=== PATIENT | female | born 1995 | race Caucasian/White ===

== ENCOUNTER 2017-08-17 22:08 | Emergency (ER) | payer MEDICAID ==
[2017-08-18 00:33] LABS: ADD MAN DIFF? NO
[2017-08-18 00:52] LABS: ADD UMIC YES; UR ASCORBIC ACID NEGATIVE (NEGATIVE); UR BACTERIA FEW /HPF (NONE SEEN); UR BILIRUBIN (Dip) NEGATIVE (NEGATIVE); UR BLOOD (Dip) NEGATIVE (NEGATIVE); UR CLARITY SLIGHTLY CLOUDY (CLEAR); UR COLOR YELLOW (YELLOW); UR GLUCOSE (Dip) NEGATIVE (NEGATIVE); UR KETONES (Dip) NEGATIVE (NEGATIVE); UR LEUKOCYTE ESTERASE (Dip) TRACE Leu/ul (NEGATIVE); UR NITRITE (Dip) NEGATIVE (NEGATIVE); UR RBC 2 /HPF (0-5); UR SPECIFIC GRAVITY (Dip) 1.013 (1.003-1.030); UR SQUAMOUS EPITHELIAL CELL FEW /HPF (FEW); UR TOTAL PROTEIN (Dip) NEGATIVE (NEGATIVE); UR UROBILINOGEN (Dip) NEGATIVE (NEGATIVE); UR WBC 4 /HPF (0-5)
[2017-08-18 00:54] LABS: WHITE BLOOD COUNT 11.3 10^3/ul (4.8-10.8)
[2017-08-18 00:54] LABS: BASOPHILS % 0.4 % (0.0-2.0); EOSINOPHILS # 0.2 10^3/ul (0.0-0.5); EOSINOPHILS % 1.6 % (0.0-7.0); HEMATOCRIT 37.3 % (37.0-47.0); HEMOGLOBIN 12.3 g/dl (12.0-16.0); LYMPHOCYTES # 3.4 10^3/ul (0.8-2.9); LYMPHOCYTES % 29.9 % (15.0-51.0); MEAN CORPUSCULAR HEMOGLOBIN 28.9 pg (29.0-33.0); MEAN CORPUSCULAR VOLUME 87.8 fl (82.0-101.0); MEAN PLATELET VOLUME 11.8 fl (7.4-10.4); MONOCYTE # 0.6 10^3/ul (0.3-0.9); MONOCYTES % 4.9 % (0.0-11.0); NEUTROPHIL # 7.1 10^3/ul (1.6-7.5); NEUTROPHILS % 62.8 % (39.0-77.0); PLATELET COUNT 185 10^3/UL (140-415); RED BLOOD COUNT 4.25 10^6/ul (4.20-5.40); RED CELL DISTRIBUTION WIDTH 13.2 % (11.5-14.5)
== END 2017-08-18 02:43 | disposition home or self-care (01) ==
LOC: FTE 22:08
DX: O26.892 Other specified pregnancy related conditions, second trimester (principal); R10.2 Pelvic and perineal pain; O23.42 Unspecified infection of urinary tract in pregnancy, second trimester; Z3A.17 17 weeks gestation of pregnancy
CPT/HCPCS: 36415; 76805; 81001; 84702; 85025; 86900; 86901; 99284-25

== ENCOUNTER 2017-09-27 13:09 | Outpatient (CLI) | payer MEDICAID ==
[2017-09-27 14:47] LABS: ADD UMIC YES; UR ASCORBIC ACID NEGATIVE (NEGATIVE); UR BACTERIA MODERATE /HPF (NONE SEEN); UR BILIRUBIN (Dip) NEGATIVE (NEGATIVE); UR BLOOD (Dip) 2+ mg/dL (NEGATIVE); UR CLARITY SLIGHTLY CLOUDY (CLEAR); UR COLOR YELLOW (YELLOW); UR GLUCOSE (Dip) NEGATIVE (NEGATIVE); UR KETONES (Dip) NEGATIVE (NEGATIVE); UR LEUKOCYTE ESTERASE (Dip) 2+ Leu/ul (NEGATIVE); UR MUCUS FEW /HPF (NONE SEEN); UR NITRITE (Dip) NEGATIVE (NEGATIVE); UR RBC 0 /HPF (0-5); UR SPECIFIC GRAVITY (Dip) 1.015 (1.003-1.030); UR SQUAMOUS EPITHELIAL CELL FEW /HPF (FEW); UR TOTAL PROTEIN (Dip) NEGATIVE (NEGATIVE); UR UROBILINOGEN (Dip) NEGATIVE (NEGATIVE); UR WBC 4 /HPF (0-5)
[2017-09-27 14:53] LABS: RUPTURE FETAL MEMBRANES NEGATIVE (NEGATIVE)
== END 2017-09-27 17:50 | disposition home or self-care (01) ==
LOC: OBT 13:09 → L-D 13:14 → OBT 17:50
DX: O99.612 Diseases of the digestive system complicating pregnancy, second trimester (principal); K80.20 Calculus of gallbladder without cholecystitis without obstruction; O23.42 Unspecified infection of urinary tract in pregnancy, second trimester; Z3A.22 22 weeks gestation of pregnancy
CPT/HCPCS: 76705; 76815; 76817; 81001; 84112

== ENCOUNTER 2017-12-09 14:30 | Outpatient (CLI) | payer MEDICAID ==
[2017-12-09 16:49] LABS: ADD UMIC YES; UR ASCORBIC ACID NEGATIVE (NEGATIVE); UR BACTERIA FEW /HPF (NONE SEEN); UR BILIRUBIN (Dip) NEGATIVE (NEGATIVE); UR BLOOD (Dip) NEGATIVE (NEGATIVE); UR CLARITY SLIGHTLY CLOUDY (CLEAR); UR COLOR YELLOW (YELLOW); UR GLUCOSE (Dip) NEGATIVE (NEGATIVE); UR KETONES (Dip) NEGATIVE (NEGATIVE); UR LEUKOCYTE ESTERASE (Dip) 1+ Leu/ul (NEGATIVE); UR NITRITE (Dip) NEGATIVE (NEGATIVE); UR RBC 1 /HPF (0-5); UR SPECIFIC GRAVITY (Dip) 1.024 (1.003-1.030); UR SQUAMOUS EPITHELIAL CELL MODERATE /HPF (FEW); UR TOTAL PROTEIN (Dip) NEGATIVE (NEGATIVE); UR UROBILINOGEN (Dip) NEGATIVE (NEGATIVE); UR WBC 3 /HPF (0-5)
[2017-12-09 17:04] LABS: RUPTURE FETAL MEMBRANES NEGATIVE (NEGATIVE)
[2017-12-09] MEDS: LACTATED RINGER'S 1,000 ML IV (18:08)
[2017-12-09] MEDS ORDERED: TERBUTALINE 1 ML (18:35)
[2017-12-09] MEDS: TERBUTALINE 1 MG/ML INJ SC (18:37)
== END 2017-12-09 21:39 | disposition home or self-care (01) ==
LOC: OBT 14:30 → L-D 14:30 → OBT 21:39
DX: O62.9 Abnormality of forces of labor, unspecified (principal); Z3A.33 33 weeks gestation of pregnancy
CPT/HCPCS: 76817; 76818; 81001; 84112; 96360; 96361; 96372

== ENCOUNTER 2018-01-07 14:48 | Outpatient (CLI) | payer MEDICAID ==
[2018-01-07 15:52] LABS: LIPASE 75 U/L (23-300)
[2018-01-07 15:52] LABS: AMYLASE 92 U/L (11-123)
== END 2018-01-07 16:30 | disposition home or self-care (01) ==
LOC: OBT 14:48 → L-D 14:49 → OBT 16:30
DX: O36.8130 Decreased fetal movements, third trimester, not applicable or unspecified (principal); Z3A.37 37 weeks gestation of pregnancy
CPT/HCPCS: 76705; 76818; 82150; 83690

== ENCOUNTER 2018-01-21 16:55 | Inpatient (IN) | payer MEDICAID ==
[2018-01-21] MEDS ORDERED: CARBOPROST 250 MCG INJ IM (18:00)
[2018-01-21] MEDS ORDERED: OXYTOCIN 30 UNITS/LR 500 ML IV ×2 (18:00→23:41)
[2018-01-21] MEDS ORDERED: BUTORPHANOL 2 MG INJ IV (18:00)
[2018-01-21] MEDS ORDERED: IBUPROFEN 600 MG TAB PO (18:00)
[2018-01-21] MEDS ORDERED: METHYLERGONOVINE 0.2 MG INJ IM (18:00)
[2018-01-21] MEDS ORDERED: LIDOCAINE 1% (MPF) 30 ML INJ INJ (18:00)
[2018-01-21] MEDS ORDERED: MISOPROSTOL 200 MCG TAB PR (18:00)
[2018-01-21] MEDS: LACTATED RINGER'S 1,000 ML IV ×2 (18:12→22:28)
[2018-01-21 18:20] LABS: ADD MAN DIFF? NO
[2018-01-21 18:26] LABS: WHITE BLOOD COUNT 8.6 10^3/ul (4.8-10.8)
[2018-01-21 18:27] LABS: BASOPHILS % 0.2 % (0.0-2.0); EOSINOPHILS # 0.1 10^3/ul (0.0-0.5); EOSINOPHILS % 1.1 % (0.0-7.0); HEMATOCRIT 36.8 % (37.0-47.0); HEMOGLOBIN 12.1 g/dl (12.0-16.0); LYMPHOCYTES # 1.9 10^3/ul (0.8-2.9); LYMPHOCYTES % 21.6 % (15.0-51.0); MEAN CORPUSCULAR HEMOGLOBIN 28.8 pg (29.0-33.0); MEAN CORPUSCULAR HGB CONC 32.9 g/dl (32.0-37.0); MEAN CORPUSCULAR VOLUME 87.6 fl (82.0-101.0); MEAN PLATELET VOLUME 12.7 fl (7.4-10.4); MONOCYTE # 0.6 10^3/ul (0.3-0.9); MONOCYTES % 6.8 % (0.0-11.0); NEUTROPHILS % 69.8 % (39.0-77.0); PLATELET COUNT 151 10^3/UL (140-415); RED CELL DISTRIBUTION WIDTH 13.8 % (11.5-14.5)
[2018-01-21 18:51] LABS: INR 0.97; PARTIAL THROMBOPLASTIN TIME 27.8 Sec (25.0-35.0)
[2018-01-21] MEDS: FAMOTIDINE 20 MG INJ IV (22:33)
[2018-01-21] MEDS: METOCLOPRAMIDE 10 MG INJ IV (22:36)
[2018-01-21] MEDS: CITRIC ACID/SODIUM CITRATE 15 ML CUP PO (22:38)
[2018-01-21] MEDS ORDERED: morphine SULFATE/PF (10 MG/10 ML) INJ (23:41)
[2018-01-21] MEDS ORDERED: BUPIVACAINE 0.75%/DEXT (SPINAL) 2 ML INJ (23:41)
[2018-01-21] MEDS ORDERED: PHENYLephrine (100 MCG/ML) 5ML SYG (23:57)
[2018-01-22] MEDS ORDERED: ONDANSETRON 4 MG INJ (00:13)
[2018-01-22] MEDS ORDERED: OXYTOCIN 30 UNITS/LR 500 ML IV ×2 (00:28→01:30)
[2018-01-22] MEDS ORDERED: FENTAnyl 50 MCG/ML VIAL (00:37)
[2018-01-22] MEDS: DEXTROSE 5%-LR 1,000 ML IV ×3 (01:05→20:48)
[2018-01-22] MEDS: CEFAZOLIN 2 GM/50 ML (PMX) 50 ML IV (01:26)
[2018-01-22] MEDS: OXYTOCIN 30 UNITS/LR 500 ML IV ×3 (01:26→01:40)
[2018-01-22] MEDS ORDERED: MEPERIDINE 25 MG INJ IV (01:30)
[2018-01-22] MEDS ORDERED: CARBOPROST 250 MCG INJ IM (01:30)
[2018-01-22] MEDS ORDERED: ONDANSETRON 4 MG INJ IV ×2 (01:30)
[2018-01-22] MEDS ORDERED: DIPHENHYDRAMINE 50 MG INJ IV (01:30)
[2018-01-22] MEDS ORDERED: ZOLPIDEM 5 MG TAB PO (01:30)
[2018-01-22] MEDS ORDERED: METHYLERGONOVINE 0.2 MG INJ IM (01:30)
[2018-01-22] MEDS ORDERED: NALOXONE (0.4 MG/ML) INJ IV (01:30)
[2018-01-22] MEDS: OXYCODONE/ACETAMINOPHEN (5/325) TAB PO ×3 (01:30→17:30)
[2018-01-22] MEDS ORDERED: HYDROmorphONE 1 MG/5 ML IV SYRINGE IV ×3 (01:30)
[2018-01-22] MEDS ORDERED: FENTAnyl 50 MCG/ML VIAL IV ×3 (01:30)
[2018-01-22] MEDS ORDERED: MISOPROSTOL 200 MCG TAB PR (01:30)
[2018-01-22] MEDS ORDERED: METHYLERGONOVINE 0.2 MG TAB PO (01:30)
[2018-01-22] MEDS ORDERED: PROCHLORPERAZINE 10 MG INJ IV (01:30)
[2018-01-22] MEDS ORDERED: HYDROmorphONE 0.5 MG/0.5 ML SYG IV ×2 (01:30)
[2018-01-22] MEDS: LACTATED RINGER'S 1,000 ML IV (01:39)
[2018-01-22] MEDS: KETOROLAC 30 MG INJ IV ×3 (01:53→16:17)
[2018-01-22] MEDS: LANOLIN 7 GM TUBE TOP (10:04)
[2018-01-22] MEDS: SENNA/DOCUSATE NA (8.6MG/50MG) TAB PO ×2 (10:04→20:47)
[2018-01-22 15:22] LABS: RAPID PLASMA REAGIN NONREACTIVE (NR)
[2018-01-22] MEDS: DIPHENHYDRAMINE 50 MG INJ IV (20:47)
[2018-01-23] MEDS: DEXTROSE 5%-LR 1,000 ML IV (01:05)
[2018-01-23] MEDS: OXYCODONE/ACETAMINOPHEN (5/325) TAB PO ×3 (01:35→17:52)
[2018-01-23] MEDS: IBUPROFEN 800 MG TAB PO ×3 (05:54→22:01)
[2018-01-23] MEDS: SENNA/DOCUSATE NA (8.6MG/50MG) TAB PO ×2 (08:59→20:58)
[2018-01-23 11:11] LABS: ADD MAN DIFF? NO
[2018-01-23 11:13] LABS: BASOPHILS % 0.4 % (0.0-2.0); EOSINOPHILS # 0.2 10^3/ul (0.0-0.5); EOSINOPHILS % 1.7 % (0.0-7.0); HEMATOCRIT 34.5 % (37.0-47.0); LYMPHOCYTES # 1.7 10^3/ul (0.8-2.9); LYMPHOCYTES % 17.8 % (15.0-51.0); MEAN CORPUSCULAR HEMOGLOBIN 28.6 pg (29.0-33.0); MEAN CORPUSCULAR HGB CONC 31.9 g/dl (32.0-37.0); MEAN CORPUSCULAR VOLUME 89.6 fl (82.0-101.0); MEAN PLATELET VOLUME 12.1 fl (7.4-10.4); MONOCYTE # 0.6 10^3/ul (0.3-0.9); MONOCYTES % 6.4 % (0.0-11.0); NEUTROPHIL # 6.9 10^3/ul (1.6-7.5); NEUTROPHILS % 73.2 % (39.0-77.0); PLATELET COUNT 139 10^3/UL (140-415); RED BLOOD COUNT 3.85 10^6/ul (4.20-5.40)
[2018-01-23 11:13] LABS: WHITE BLOOD COUNT 9.4 10^3/ul (4.8-10.8)
[2018-01-24] MEDS: OXYCODONE/ACETAMINOPHEN (5/325) TAB PO ×5 (01:18→19:54)
[2018-01-24] MEDS: IBUPROFEN 800 MG TAB PO ×3 (05:22→22:27)
[2018-01-24] MEDS: SENNA/DOCUSATE NA (8.6MG/50MG) TAB PO ×2 (08:37→22:28)
[2018-01-25] MEDS: OXYCODONE/ACETAMINOPHEN (5/325) TAB PO ×2 (02:17→08:50)
[2018-01-25] MEDS: IBUPROFEN 800 MG TAB PO ×2 (05:28→13:08)
[2018-01-25] MEDS: SENNA/DOCUSATE NA (8.6MG/50MG) TAB PO (08:50)
[2018-01-25] MEDS: MEASLES,MUMPS,RUBELLA VACCINE INJ SC* (09:18)
[2018-01-25] MEDS: DIPHTH/TET/ACEL PERTUSS (ADULT) 0.5 ML VIAL IM* (12:27)
== END 2018-01-25 13:25 | disposition home or self-care (01) | DRG 766 ==
LOC: L-D 16:55 → PP1 01-22 04:25
PROVIDERS: Obstetrics & Gynecology
PROC: 10D00Z1 Extraction of Products of Conception, Low, Open Approach (ICD-10-PCS; principal; 2018-01-22)
PROC: 3E033VJ Introduction of Other Hormone into Peripheral Vein, Percutaneous Approach (ICD-10-PCS; 2018-01-22)
DX: O99.214 Obesity complicating childbirth (principal); E66.9 Obesity, unspecified; O36.63X0 Maternal care for excessive fetal growth, third trimester, not applicable or unspecified; Z68.39 Body mass index [BMI] 39.0-39.9, adult; Z3A.39 39 weeks gestation of pregnancy; Z37.0 Single live birth
CPT/HCPCS: 76815; 76818; 85025; 85610; 85730; 86592; 86850; 86900; 86901; 90715; 99464